=== PATIENT | male | born 2000 | race African-American/Black ===

== ENCOUNTER 2022-06-14 12:45 | Emergency (ER) | payer OTHER, SELFPAY ==
[2022-06-14 12:55] VITALS: BP 113/57; PULSE 59; RESP 18; O2SAT 100
--- NOTE | 2022-06-14 13:23 | ED.GENADULT ---
HPI - General Adult General Chief complaint: Wound/Laceration Stated complaint: Suture Removal Source: patient Mode of arrival: ambulatory Limitations: no limitations History of Present Illness HPI narrative: Patient presents for suture removal. He indicates he accidentally cut himself at work about a month ago. Laceration was localized to 3rd digit of left hand. He was seen at [facility] where he had 5 sutures placed. Indicates he has been fairly busy so he has not been able to come in for suture removal. He denies any fever, chills, purulence from the affected area. He is not diabetic. He does not smoke. He reports mild pain in the affected area without descriptive quality or numerical rating. He is right hand dominant. Related Data Home Medications Medication Instructions Recorded Confirmed No Home Medications 06/14/22 06/14/22 Allergies Allergy/AdvReac Type Severity Reaction Status Date / Time No Known Allergies Allergy Verified 06/14/22 13:08 Review of Systems Review of Systems: CONSTITUTIONAL: Denies fever, chills, or sweats. EYES: Denies visual changes, redness, or discharge. ENT: Denies rhinorrhea, congestion, sore throat, or otalgia. CARDIOVASCULAR: Denies chest pain, palpitations, or edema. RESPIRATORY: Denies cough or dyspnea. GASTROINTESTINAL: Denies abdominal pain, nausea, vomiting, or diarrhea. GENITOURINARY: Denies dysuria or hematuria. SKIN: Reports healing laceration to the 3rd digit of left hand. MUSCULOSKELETAL: Reports pain in 3rd digit of left hand. Denies back pain NEUROLOGIC: Denies headache, numbness, dizziness, or weakness. PSYCHIATRIC: Denies anxiety or depression. [facility] Past Medical History Medical History No pertinent past medical history Surgical History Surgical History No pertinent past surgical history Family History Family History Mother Family history non-contributory Social History Social History Smoking status: Never smoker Substance use: never Living arrangements: with family Gender identity (if verbalized by the patient): Male Spiritual care concerns: No Exam Narrative: GENERAL: Well-appearing, well-nourished, and in no acute distress. HEAD: Normocephalic, atraumatic. EYES: PERRLA and EOMI. ENT: Nares clear, no rhinorrhea or epistaxis. Mucous membranes moist. Oropharynx without tonsillar hypertrophy exudate or other lesions. Bilateral TMs pearly garcia nonbulging NECK: Supple. No adenopathy or masses. No carotid bruits or JVD CHEST: Clear to auscultation. No respiratory distress. No wheezes rales or rhonchi HEART: Regular rate and rhythm. No murmur heard. Normal peripheral pulses. ABDOMEN: Soft, nontender, nondistended, normal active bowel sounds. EXTREMITIES: Normal range of motion. No edema. SKIN: There are 5 sutures intact to the palmar aspect of the distal phalanx of the 3rd digit of the left hand without considerable drainage. NEURO: No focal deficits. Alert and oriented x3. PSYCH: Normal mood and affect. Course Course Emergency Course: This is a 22-year-old male who presented for suture removal. No evidence of infection present. Five sutures were removed and patient tolerated well. Advised he use antibiotic ointment to monitor the area for any evidence of infection. Follow up with primary provider. Go to the ER for intractable pain, evidence of infection. Patient in agreement plan of care. Level of Care: Express Care Visit Vital Signs Vital signs: Vital Signs Pulse Rate 59 L 06/14/22 12:55 Respiratory Rate 18 06/14/22 12:55 Blood Pressure 113/57 L 06/14/22 12:55 Pulse Oximetry 100 06/14/22 12:55 Pulse Rate 59 L 06/14/22 12:55 Respiratory Rate
== END 2022-06-14 13:25 | disposition home or self-care (01) ==
PROVIDERS: Emergency Provider Nurse Practitioner
DX: S61.213D Laceration without foreign body of left middle finger without damage to nail, subsequent encounter (principal); W45.8XXD Other foreign body or object entering through skin, subsequent encounter
CPT/HCPCS: 99211; G0463

== ENCOUNTER 2023-08-03 15:56 | Emergency (ER) | payer OTHER, SELFPAY ==
[2023-08-03 16:09] VITALS: BP 177/87; PULSE 60; RESP 18; TEMP 36.1; O2SAT 100
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
[2023-08-03] MEDS: SILVER SULFADIAZINE 1% CR 400 GM JAR (*BKC) 1 APPLIC (18:36)
[2023-08-03] MEDS: BACITRACIN OINTMENT 15 GM TUBE 1 APPLIC TOPICAL (18:36)
--- NOTE | 2023-08-03 18:51 | PC.NURSE ---
Silvadene ointment to bilateral arms covered with telfa, secured with andres wrap. Bacitracin ointment to bilateral upper eyelids, bilateral cheeks, nose, upper & lower lips. Pt tolerated well.
[2023-08-03 18:57] VITALS: BP 160/82; PULSE 66; RESP 18; TEMP 36.6; O2SAT 100
== END 2023-08-03 19:07 | disposition home or self-care (01) ==
PROVIDERS: Emergency Provider General Practice
DX: T20.24XA Burn of second degree of nose (septum), initial encounter (principal); T20.16XA Burn of first degree of forehead and cheek, initial encounter; T22.232A Burn of second degree of left upper arm, initial encounter; T20.12XA Burn of first degree of lip(s), initial encounter; T22.231A Burn of second degree of right upper arm, initial encounter; T31.0 Burns involving less than 10% of body surface; X03.0XXA Exposure to flames in controlled fire, not in building or structure, initial encounter
CPT/HCPCS: 99283; A9270